=== PATIENT | female | born 1995 ===

== ENCOUNTER 2018-07-27 20:06 | Emergency (ER) | payer OTHER ==
[2018-07-27 20:32] VITALS: BP 114/80
--- NOTE | 2018-07-27 20:33 | Emergency Department Report ---
Chief Complaint: Chest Pain Stated Complaint: CHEST PAIN Time Seen by Provider: 07/27/18 20:31 - HPI History of Present Illness: lmp last month psh none pmh none rx none c/e/d none woke up from sleep mom/dad a/w pos flatus mse completed MSE screening note: Focused history and physical exam performed. Due to findings the following was ordered: ED Disposition for MSE Condition: Stable
--- NOTE | 2018-07-27 22:51 | XRay Report ---
PROCEDURE: XR CHEST ROUTINE 2V TECHNIQUE: Chest radiograph , PA and lateral views. HISTORY: CHEST PAIN COMPARISONS: None . FINDINGS: Heart: Normal. Mediastinum/Vessels: Normal. Lungs/Pleural space: Normal. Bony thorax: No acute osseous abnormality. Life support devices: None. IMPRESSION: No acute cardiopulmonary abnormality. This document is electronically signed by Mery Vasquez MD., Jul 27 2018 10:49:26 PM ET
[2018-07-28] MEDS ORDERED: PEPCID PO ONE (03:51)
[2018-07-28] MEDS ORDERED: TORADOL IM ONE (03:52)
[2018-07-28] MEDS ORDERED: HALFPRIN EC PO ONE (03:52)
[2018-07-28] MEDS ORDERED: TORADOL IV ONE (04:35)
[2018-07-28 04:36] LABS: Basophils % (Auto) 0.9 % (0.0-1.8); Eosinophils % (Auto) 0.9 % (0.0-4.3); Hematocrit 41.4 % (30.3-42.9); Hemoglobin 13.9 gm/dl (10.1-14.3); Lymphocytes # (Auto) 2.8 K/mm3 (1.2-5.4); Lymphocytes % (Auto) 54.2 % (13.4-35.0); Mean Corpuscular HGB Conc 34 % (30-34); Mean Corpuscular Volume 96 fl (79-97); Monocytes # (Auto) 0.2 K/mm3 (0.0-0.8); Monocytes % (Auto) 4.1 % (0.0-7.3); Platelet Count 210 K/mm3 (140-440); Red Blood Count 4.32 M/mm3 (3.65-5.03); Red Cell Distribution Width 13.4 % (13.2-15.2)
[2018-07-28 05:15] LABS: Alanine Aminotransferase 14 units/L (7-56); Albumin 4.4 g/dL (3.9-5); BUN/Creatinine Ratio 13; Blood Urea Nitrogen 9 mg/dL (7-17); Calcium 9.6 mg/dL (8.4-10.2); Hemolysis Index 8
--- NOTE | 2018-07-28 05:53 | Emergency Department Report ---
ED Chest Pain HPI - General Chief Complaint: Chest Pain Stated Complaint: CHEST PAIN Time Seen by Provider: 07/27/18 20:31 Source: patient Mode of arrival: Ambulatory Limitations: No Limitations - History of Present Illness Initial Comments: Patient is a 23-year-old [place] female with no past medical history presents to the ED with complaint of acute onset persistent constant pleuritic substernal chest pain for the last 12 hours. Patient states that the pain is worse with any deep inhalation or palpation of the chest. Patient denies dizziness, h eadache, nausea, vomiting, shortness of breath, diaphoresis, abdominal pain, headache, back pain, palpitations or cough. MD Complaint: chest pain -: Sudden, hour(s) (12) Onset: awoke with symptoms Pain Location: substernal Pain Radiation: none Severity: moderate Severity scale (0 -10): 6 Quality: aching, sharp, pressure, other (pleuritic) Consistency: constant Improves With: nothing Worsens With: inspiration, palpation, movement re: denies: nausea, vomting, diaphoresis, dyspnea, sense of impending doom Other Symptoms: denies: cough, fever, syncope, rash, acid taste in mouth, leg swelling, palpitations, burping Treatments Prior to Arrival: none Aspirin use within the Past 7 Days: (0) No - Related Data On Oral Contraceptives: No Previous Rx's Medication Instructions Recorded Last Taken Type Cyclobenzaprine HCl [Flexeril 5 MG 5 mg PO Q8H PRN #12 tablet 07/28/18 Unknown Rx TAB] Naproxen 500 mg PO Q12H PRN #20 tablet 07/28/18 Unknown Rx Ranitidine HCl [Zantac] 150 mg PO Q12H #20 tablet 07/28/18 Unknown Rx Allergies Allergy/AdvReac Type Severity Reaction Status Date / Time No Known Allergies Allergy Verified 07/27/18 20:10 Heart Score - HEART Score History: Slightly suspicious EKG: Normal Age: < 45 Risk factors: No known risk factors Troponin: < normal limit HEART Score: 0 - Critical Actions Critical Actions: 0-3 pts:0.9-1.7%risk of adverse cardiac event.Candidate for discharge ED Review of Systems ROS: Stated complaint: CHEST PAIN Other details as noted in HPI Comment: All other systems reviewed and negative Constitutional: no symptoms reported, see HPI. denies: diaphoresis, fever, malaise, weakness Eyes: as per HPI. denies: eye pain, eye discharge, vision change ENT: as per HPI. denies: ear pain, throat pain, dental pain, hearing loss Respiratory: no symptoms reported, see HPI. denies: cough, orthopnea, shortness of breath, SOB with exertion, SOB at rest, stridor, wheezing Cardiovascular: as per HPI, chest pain. denies: palpitations, dyspnea on ex ertion, orthopnea, edema, syncope, paroxysmal nocturnal dyspnea Endocrine: no symptoms reported, see HPI. denies: excessive sweating, flushing, increased thirst, unexplained weight gain Gastrointestinal: as per HPI. denies: abdominal pain, nausea, vomiting, diarrhea Genitourinary: as per HPI. denies: urgency, dysuria, hematuria, discharge Musculoskeletal: as per HPI. denies: back pain, joint swelling, arthralgia Skin: as per HPI. denies: rash, change in color, change in hair/nails Neurological: as per HPI. denies: headache, numbness, paresthesias Psychiatric: as per HPI, anxiety. denies: auditory hallucinations, visual hallucinations Hematological/Lymphatic: as per HPI. denies: easy bruising, swollen glands ED Past Medical Hx - Past Medical History Previous Medical History?: No - Surgical History Past Surgical History?: No - Social History Smoking Status: Never Smoker Substance Use Type: None - Medications Home Medications: Home Medications Medication Instructions Recorded Confirmed Last Taken Type Cyclobenzaprine HCl [Flexeril 5 MG 5 mg PO Q8H PRN #12 tablet 07/28/18 Unknown Rx TAB] Naproxen 500 mg PO Q12H PRN #20 tablet 07/28/18 Unknown Rx Ranitidine HCl [Zantac] 150 mg PO Q12H #20 tablet 07/28/18 Unknown Rx ED Physical Exam - General Limitations: No Limitations General appearance: alert, in no apparent distress - Head Head exam: Present: atraumatic, normocephalic, normal inspection - Eye Eye exam: Present: normal appearance, PERRL, EOMI Pupils: Present: normal accommodation - ENT ENT exam: Present: normal exam, normal orophraynx, mucous membranes moist, TM's normal bilaterally, normal external ear exam - Neck Neck exam: Present: normal inspection, full ROM. Absent: tenderness - Respiratory Respiratory exam: Present: normal lung sounds bilaterally, chest wall tenderness (substernal). Absent: respiratory distress, wheezes, rales, rhonchi, accessory muscle use, decreased breath sounds, prolonged expiratory - Cardiovascular Cardiovascular Exam: Present: regular rate, normal rhythm, normal heart sounds - GI/Abdominal GI/Abdominal exam: Present: soft, normal bowel sounds. Absent: distended, guarding, hyperactive bowel sounds, hypoactive bowel sounds, organomegaly - Rectal Rectal exam: Present: deferred - Extremities Exam Extremities exam: Present: normal inspection, full ROM, normal capillary refill - Back Exam Back exam: Present: normal inspection, full ROM. Absent: tenderness, CVA tenderness (R), CVA tenderness (L) - Neurological Exam Neurological exam: Present: alert, oriented X3, CN II-XII intact, normal gait, reflexes normal - Psychiatric Psychiatric exam: Present: anxious - Skin Skin exam: Present: warm, dry, intact ED Course Vital Signs 07/27/18 20:31 Temperature 99.0 F Pulse Rate 88 Respiratory 18 Rate Blood Pressure 114/80 O2 Sat by Pulse 100 Oximetry - Reevaluation(s) Reevaluation #1: 07/28/18 05:59 Patient is alert and oriented 3 and is not in distress with normal vital signs. EKG shows normal sinus rhythm with a heart rate of [address] or T-wave changes or abnormalities. Chest x-ray shows no acute cardiopulmonary abnormalities. Laboratory results were reviewed and are unremarkable including troponin level and d-dimer. Patient does not have any risk factors for coronary artery disease or PE. Patient was treated for pain in the ED and discharged home on and anti-inflammatory medications as well as antacids. Patient advised to follow-up with her primary care physician in 3-5 days for reevaluation, or return to the ED immediately if symptoms get worse. DIANA score - Diana Score Age > 65: (0) No Aspirin use within the Past 7 Days: (0) No 3 or more CAD Risk Factors: (0) No 2 or more Angina events in past 24 hrs: (0) No Known CAD with more than 50% Stenosis: (0) No Elevated Cardiac Markers: (0) No ST Deviation Greater than 0.5mm: (0) No DIANA Score: 0 ED Medical Decision Making - Lab Data Result diagrams: 07/28/18 04:07/28/18 04:05 - EKG Data EKG shows normal: sinus rhythm Rate: normal - EKG Data When compared to previous EKG there are: previous EKG unavailable Interpretation: no acute changes, normal EKG 07/28/18 06:01 Normal sinus rhythm. - Radiology Data Radiology results: report reviewed, image reviewed No acute cardiopulmonary abnormalities in the chest x-ray - Medical Decision Making Patient is alert and oriented 3 and is not in distress with normal vital signs. EKG shows normal sinus rhythm with a heart rate of [address] or T-wave changes or abnormalities. Chest x-ray shows no acute cardiopulmonary abnormalities. Laboratory results were reviewed and are unremarkable including troponin level and d-dimer. Patient does not have any risk factors for coronary artery disease or PE. Patient was treated for pain in the ED and discharged home on and anti-inflammatory medications as well as antacids. Patient advised to follow-up with her primary care physician in 3-5 days for reevaluation, or return to the ED immediately if symptoms get worse. - Differential Diagnosis PE, GERD, Acute costochondritis, Muscle strain of chest wall Critical Care Time: No Critical care attestation.: If time is entered above; I have spent that time in minutes in the direct care of this critically ill patient, excluding procedure time. ED Disposition Clinical Impression: Acute costochondritis, Muscle strain of anterior chest wall GERD (gastroesophageal reflux disease) Qualifiers: Esophagitis presence: without esophagitis Qualified Code(s): K21.9 - Gastro- esophageal reflux disease without esophagitis Disposition: - TO HOME OR SELFCARE Is pt being admited?: No Does the pt Need Aspirin: No Condition: Stable Instructions: Chest Pain (ED), Costochondritis (ED), Gastroesophageal Reflux Disease (ED) Additional Instructions: Take medications with food, drink plenty of fluids and follow-up with your primary care physician or [facility]. Return to the ED immediately if symptoms get worse. Prescriptions: Cyclobenzaprine HCl [Flexeril 5 MG TAB] 5 mg PO Q8H PRN #12 tablet PRN Reason: Spasms Naproxen 500 mg PO Q12H PRN #20 tablet PRN Reason: Pain , Severe (7-10) Ranitidine HCl [Zantac] 150 mg PO Q12H #20 tablet Referrals: SHRUTHI GONZALES MD [Primary Care Provider] - 3-5 Days Forms: Work/School Release Form(ED) Time of Disposition: 06:04 Print Language: UKRAINIAN
== END 2018-07-28 06:17 | disposition home or self-care (01) ==
LOC: ED 20:06
DX: S29.011A Strain of muscle and tendon of front wall of thorax, initial encounter (principal); M94.0 Chondrocostal junction syndrome [Tietze]; K21.9 Gastro-esophageal reflux disease without esophagitis; X58.XXXA Exposure to other specified factors, initial encounter; Y93.89 Activity, other specified; Y92.89 Other specified places as the place of occurrence of the external cause; Y99.8 Other external cause status
CPT/HCPCS: 36415; 71046; 80053; 84484; 85025; 85379; 93005; 93010; 96374; 99284; J1885